=== PATIENT | male | born 1960 | race Caucasian/White ===

== ENCOUNTER 2017-07-04 08:30 | Emergency (ER) | payer MEDICARE, OTHER ==
[~2017-07-04] VITALS: Ht 195.6 cm; Wt 87.5 kg
[~2017-07-04 08:30] MED LIST: ALLERGY MED; Amantadine50 MG/5 ML PT; BISA10S PR; CEPH500 PO; CITA20 PO; CLON1 PO; CYAN100 PO; Carbidopa-Levo1 EAC1 PT; Citrate Of Mag300 ML PO; DEXA2; Desyrel50 MG PO; ESCI10; FAMO20 PO; FLUO10 PO; GAVILAX17 GM PT; HYDACE5; HYDACE5 PO; IBUHYD PO; KETO10 PO; Kristalose20 GM PO; LACTULOSE20 GM/30 M PO; LEVCAR2510 PO; MIRALAX119 GM PO; Milk Of Ma400 MG/5 M PO; NORT75; ONDA4 PO; PANT40 PO; PROP80ER PO; RXCEPH500 PO; STOOL SOFTENER100 MG PO; TAMS.4ER PO; TRAM50 PO; VENL150ER PO
[2017-09-29] MEDS ORDERED: ALBU3IS INH (14:48)
[2017-09-29] MEDS ORDERED: GAVILAX17 GM PT (14:51)
[2017-09-29] MEDS ORDERED: PROBIOTIC1 EAC1 PT (14:59)
[2017-09-29] MEDS ORDERED: SENN187 PT (15:00)
[2017-09-29] MEDS ORDERED: Fruity C250 MG PT (15:02)
[2017-09-29] MEDS ORDERED: Mucinex600 MG PT (17:23)
[2017-09-29] MEDS ORDERED: QUET25 PT ×2 (17:23)
== END 2017-07-04 11:48 | disposition home or self-care (01) ==
LOC: ER 08:30
DX: S01.111A Laceration without foreign body of right eyelid and periocular area, initial encounter (principal); M25.511 Pain in right shoulder; Z88.5 Allergy status to narcotic agent; Z79.899 Other long term (current) drug therapy; W22.8XXA Striking against or struck by other objects, initial encounter; Y92.009 Unspecified place in unspecified non-institutional (private) residence as the place of occurrence of the external cause
CPT/HCPCS: 12014; 70450; 73030; 99284

== ENCOUNTER → 2017-07-17 | Outpatient (CLI) | payer MEDICARE, OTHER ==
[~2017-07-17] MED LIST changes: +ACETAMINOP325 MG/10. PT; +ALBU2.5V5 NEB; +ALBU3IS INH; +B Complex #11 EACH PT; +Cephalexin250 MG/5 M PO; +DOXA1 PT; +FURADANTIN PT; +Fruity C250 MG PT; +LEVOFLOXAC250 MG/10 PT; +LORA.5 PO; +LORA.5 PT; +MEROPENEM-1 GM/50 ML IV; +Mucinex600 MG PT; +NYST100000 PO; +ONDA4ODT MM; +ONDA8 PT; +PROBIOTIC1 EAC1 PT; +PROM25 PO; +Prilosec10 M1 PT; +QUET25 PT; +ROXICODONE5 MG PT; +Ranitidine HCl300 MG PO; +SENN187 PT; +SULFATRIM 800-120 ML PT; +Solaraze100 GM TOP; +Xylocaine 2% In20 ML PO; +ZOSYN 3.373.375 GM/5 IV
[2017-07-17 12:36] LABS: Source, Urine Clean Catch
[2017-07-17 13:08] LABS: Bilirubin, Urine Neg (Neg); Blood, Urine 1+ (Neg); Glucose Qualitative, Urine Neg (Neg); Ketones, Urine 1+ (Neg); Leukocyte Esterase, Urine 2+ (Neg); Nitrite, Urine Neg (Neg); Protein, Urine Neg (Neg); Urobilinogen, Urine 1+ (Normal)
[2017-07-17 13:22] LABS: Appearance, Urine Clear (Clear); Color, Urine Yellow (P-Yellow)
[2017-07-17 13:23] LABS: Bacteria Few /hpf; Squamous Epithelial Cells Not Seen /hpf (Few)
== END | disposition home or self-care (01) ==
LOC: LAB 12:35
PROVIDERS: Internal Medicine Hematology & Oncology
DX: C09.9 Malignant neoplasm of tonsil, unspecified (principal); C77.0 Secondary and unspecified malignant neoplasm of lymph nodes of head, face and neck
CPT/HCPCS: 81001; 87077; 87086; 87186

== ENCOUNTER → 2017-07-24 | Outpatient (CLI) | payer MEDICARE, OTHER ==
[2017-07-24 14:56] LABS: Source, Urine Clean Catch
[2017-07-24 15:23] LABS: Bilirubin, Urine Neg (Neg); Blood, Urine Neg (Neg); Glucose Qualitative, Urine Neg (Neg); Ketones, Urine Neg (Neg); Leukocyte Esterase, Urine 1+ (Neg); Nitrite, Urine Neg (Neg); Protein, Urine 1+ (Neg); Urobilinogen, Urine 2+ (Normal)
[2017-07-24 15:32] LABS: Appearance, Urine Clear (Clear); Color, Urine Yellow (P-Yellow)
[2017-07-24 15:33] LABS: Bacteria Few /hpf; Red Blood Cells, Urine 0-2 /hpf (0-2); Squamous Epithelial Cells Few /hpf (Few)
== END ==
LOC: LAB SHORT 14:54
PROVIDERS: Radiology Therapeutic Radiology
DX: N39.0 Urinary tract infection, site not specified (principal)
CPT/HCPCS: 81001; 87077; 87086; 87186

== ENCOUNTER 2017-07-26 22:58 | Emergency (ER) | payer MEDICARE, OTHER ==
[~2017-07-26] VITALS: Ht 195.6 cm; Wt 85.7 kg
[~2017-07-26 22:58] MED LIST changes: -ACETAMINOP325 MG/10. PT; -ALBU2.5V5 NEB; -ALBU3IS INH; -B Complex #11 EACH PT; -Cephalexin250 MG/5 M PO; -DOXA1 PT; -FURADANTIN PT; -Fruity C250 MG PT; -LEVOFLOXAC250 MG/10 PT; -LORA.5 PO; -LORA.5 PT; -MEROPENEM-1 GM/50 ML IV; -Mucinex600 MG PT; -NYST100000 PO; -ONDA4ODT MM; -ONDA8 PT; -PROBIOTIC1 EAC1 PT; -PROM25 PO; -Prilosec10 M1 PT; -QUET25 PT; -ROXICODONE5 MG PT; -Ranitidine HCl300 MG PO; -SENN187 PT; -SULFATRIM 800-120 ML PT; -Solaraze100 GM TOP; -Xylocaine 2% In20 ML PO; -ZOSYN 3.373.375 GM/5 IV
[2017-07-27] MEDS ORDERED: ONDA8 PT (11:55)
[2017-07-27] MEDS ORDERED: ONDA4ODT MM (11:55)
[2017-07-27] MEDS ORDERED: PANT40 PO (11:58)
[2017-07-27] MEDS ORDERED: Solaraze100 GM TOP (12:00)
[2017-07-27] MEDS ORDERED: NYST100000 PO (12:02)
[2017-07-27] MEDS ORDERED: Xylocaine 2% In20 ML PO (12:05)
[2017-07-27] MEDS ORDERED: Ranitidine HCl300 MG PO (12:05)
[2017-07-27] MEDS ORDERED: PROM25 PO (12:06)
[2017-07-27] MEDS ORDERED: SULFATRIM 800-120 ML PT (12:09)
[2017-07-27] MEDS ORDERED: LORA.5 PO (12:10)
[2017-07-27] MEDS ORDERED: LEVOFLOXAC250 MG/10 PT (12:12)
[2017-07-27] MEDS ORDERED: ALBU2.5V5 NEB (12:14)
[2017-07-27] MEDS ORDERED: ZOSYN 3.373.375 GM/5 IV (12:15)
[2017-09-29] MEDS ORDERED: ALBU3IS INH (14:48)
[2017-09-29] MEDS ORDERED: GAVILAX17 GM PT (14:51)
[2017-09-29] MEDS ORDERED: PROBIOTIC1 EAC1 PT (14:59)
[2017-09-29] MEDS ORDERED: SENN187 PT (15:00)
[2017-09-29] MEDS ORDERED: Fruity C250 MG PT (15:02)
[2017-09-29] MEDS ORDERED: Mucinex600 MG PT (17:23)
[2017-09-29] MEDS ORDERED: QUET25 PT ×2 (17:23)
== END 2017-07-27 00:43 | disposition home or self-care (01) ==
LOC: ER 22:58
DX: N39.0 Urinary tract infection, site not specified (principal); B96.5 Pseudomonas (aeruginosa) (mallei) (pseudomallei) as the cause of diseases classified elsewhere; C14.0 Malignant neoplasm of pharynx, unspecified; Z88.5 Allergy status to narcotic agent; Z79.899 Other long term (current) drug therapy; Z87.891 Personal history of nicotine dependence
CPT/HCPCS: 96365; 99282; J2543; J7030

== ENCOUNTER 2017-07-27 08:14 | Day surgery (SDC) | payer MEDICARE, OTHER ==
[2017-07-27] MEDS ORDERED: ONDA8 PT (11:55)
[2017-07-27] MEDS ORDERED: ONDA4ODT MM (11:55)
[2017-07-27] MEDS ORDERED: PANT40 PO (11:58)
[2017-07-27] MEDS ORDERED: Solaraze100 GM TOP (12:00)
[2017-07-27] MEDS ORDERED: NYST100000 PO (12:02)
[2017-07-27] MEDS ORDERED: Ranitidine HCl300 MG PO (12:05)
[2017-07-27] MEDS ORDERED: Xylocaine 2% In20 ML PO (12:05)
[2017-07-27] MEDS ORDERED: PROM25 PO (12:06)
[2017-07-27] MEDS ORDERED: SULFATRIM 800-120 ML PT (12:09)
[2017-07-27] MEDS ORDERED: LORA.5 PO (12:10)
[2017-07-27] MEDS ORDERED: LEVOFLOXAC250 MG/10 PT (12:12)
[2017-07-27] MEDS ORDERED: ALBU2.5V5 NEB (12:14)
[2017-07-27] MEDS ORDERED: ZOSYN 3.373.375 GM/5 IV (12:15)
[2017-09-29] MEDS ORDERED: ALBU3IS INH (14:48)
[2017-09-29] MEDS ORDERED: GAVILAX17 GM PT (14:51)
[2017-09-29] MEDS ORDERED: PROBIOTIC1 EAC1 PT (14:59)
[2017-09-29] MEDS ORDERED: SENN187 PT (15:00)
[2017-09-29] MEDS ORDERED: Fruity C250 MG PT (15:02)
[2017-09-29] MEDS ORDERED: Mucinex600 MG PT (17:23)
[2017-09-29] MEDS ORDERED: QUET25 PT ×2 (17:23)
== END 2017-07-27 18:39 | disposition home or self-care (01) ==
LOC: ATC 08:14
DX: N39.0 Urinary tract infection, site not specified (principal); Z79.899 Other long term (current) drug therapy; Z88.5 Allergy status to narcotic agent
CPT/HCPCS: 96365; 99282; J2185; J2543; J7030

== ENCOUNTER 2017-07-28 00:29 | Day surgery (SDC) | payer MEDICARE, OTHER ==
[~2017-07-28 00:29] MED LIST changes: +ALBU2.5V5 NEB; +LEVOFLOXAC250 MG/10 PT; +LORA.5 PO; +NYST100000 PO; +ONDA4ODT MM; +ONDA8 PT; +PROM25 PO; +Ranitidine HCl300 MG PO; +SULFATRIM 800-120 ML PT; +Solaraze100 GM TOP; +Xylocaine 2% In20 ML PO; +ZOSYN 3.373.375 GM/5 IV
[2017-07-29] MEDS ORDERED: MEROPENEM-1 GM/50 ML IV (08:20)
[2017-09-29] MEDS ORDERED: ALBU3IS INH (14:48)
[2017-09-29] MEDS ORDERED: GAVILAX17 GM PT (14:51)
[2017-09-29] MEDS ORDERED: PROBIOTIC1 EAC1 PT (14:59)
[2017-09-29] MEDS ORDERED: SENN187 PT (15:00)
[2017-09-29] MEDS ORDERED: Fruity C250 MG PT (15:02)
[2017-09-29] MEDS ORDERED: QUET25 PT ×2 (17:23)
[2017-09-29] MEDS ORDERED: Mucinex600 MG PT (17:23)
== END 2017-07-28 17:10 | disposition home or self-care (01) ==
LOC: ATC 00:29
DX: N39.0 Urinary tract infection, site not specified (principal); Z76.89 Persons encountering health services in other specified circumstances; R41.0 Disorientation, unspecified; G20 Parkinson's disease; Z85.01 Personal history of malignant neoplasm of esophagus; Z79.899 Other long term (current) drug therapy; Z79.2 Long term (current) use of antibiotics; Z79.891 Long term (current) use of opiate analgesic; Z87.891 Personal history of nicotine dependence
CPT/HCPCS: 96365; 96374; 99282; J2185; J2543; J7030

== ENCOUNTER 2017-07-29 00:31 | Day surgery (SDC) | payer MEDICARE, OTHER ==
[2017-07-29] MEDS ORDERED: MEROPENEM-1 GM/50 ML IV (08:20)
[2017-09-29] MEDS ORDERED: ALBU3IS INH (14:48)
[2017-09-29] MEDS ORDERED: GAVILAX17 GM PT (14:51)
[2017-09-29] MEDS ORDERED: PROBIOTIC1 EAC1 PT (14:59)
[2017-09-29] MEDS ORDERED: SENN187 PT (15:00)
[2017-09-29] MEDS ORDERED: Fruity C250 MG PT (15:02)
[2017-09-29] MEDS ORDERED: QUET25 PT ×2 (17:23)
[2017-09-29] MEDS ORDERED: Mucinex600 MG PT (17:23)
== END 2017-07-29 18:05 | disposition home or self-care (01) ==
LOC: ATC 00:31
DX: N39.0 Urinary tract infection, site not specified (principal)
CPT/HCPCS: 96374; J2185

== ENCOUNTER 2017-07-30 00:53 | Day surgery (SDC) | payer MEDICARE, OTHER ==
[~2017-07-30 00:53] MED LIST changes: +MEROPENEM-1 GM/50 ML IV
[2017-09-29] MEDS ORDERED: ALBU3IS INH (14:48)
[2017-09-29] MEDS ORDERED: GAVILAX17 GM PT (14:51)
[2017-09-29] MEDS ORDERED: PROBIOTIC1 EAC1 PT (14:59)
[2017-09-29] MEDS ORDERED: SENN187 PT (15:00)
[2017-09-29] MEDS ORDERED: Fruity C250 MG PT (15:02)
[2017-09-29] MEDS ORDERED: QUET25 PT ×2 (17:23)
[2017-09-29] MEDS ORDERED: Mucinex600 MG PT (17:23)
== END 2017-07-30 17:20 | disposition home or self-care (01) ==
LOC: ATC 00:53
DX: N39.0 Urinary tract infection, site not specified (principal)
CPT/HCPCS: 96374; J2185

== ENCOUNTER 2017-07-31 08:07 | Day surgery (SDC) | payer MEDICARE, OTHER ==
[2017-09-29] MEDS ORDERED: ALBU3IS INH (14:48)
[2017-09-29] MEDS ORDERED: GAVILAX17 GM PT (14:51)
[2017-09-29] MEDS ORDERED: PROBIOTIC1 EAC1 PT (14:59)
[2017-09-29] MEDS ORDERED: SENN187 PT (15:00)
[2017-09-29] MEDS ORDERED: Fruity C250 MG PT (15:02)
[2017-09-29] MEDS ORDERED: Mucinex600 MG PT (17:23)
[2017-09-29] MEDS ORDERED: QUET25 PT ×2 (17:23)
== END 2017-07-31 17:24 | disposition home or self-care (01) ==
LOC: ATC 08:07
DX: N39.0 Urinary tract infection, site not specified (principal)
CPT/HCPCS: 36415; 80053; 85025; 96374; J2185

== ENCOUNTER 2017-08-01 00:24 | Day surgery (SDC) | payer MEDICARE, OTHER ==
[2017-09-29] MEDS ORDERED: ALBU3IS INH (14:48)
[2017-09-29] MEDS ORDERED: GAVILAX17 GM PT (14:51)
[2017-09-29] MEDS ORDERED: PROBIOTIC1 EAC1 PT (14:59)
[2017-09-29] MEDS ORDERED: SENN187 PT (15:00)
[2017-09-29] MEDS ORDERED: Fruity C250 MG PT (15:02)
[2017-09-29] MEDS ORDERED: Mucinex600 MG PT (17:23)
[2017-09-29] MEDS ORDERED: QUET25 PT ×2 (17:23)
== END 2017-08-01 17:30 | disposition home or self-care (01) ==
LOC: ATC 00:24
DX: N39.0 Urinary tract infection, site not specified (principal)
CPT/HCPCS: 96374; J2185

== ENCOUNTER 2017-08-01 17:39 | Emergency (ER) | payer MEDICARE, OTHER ==
[~2017-08-01] VITALS: Ht 195.6 cm; Wt 83.5 kg
[2017-08-01 18:32] LABS: BASOPHILS ABSOLUTE AUTO 0.01 K/mm3 (0.00-0.23); BASOPHILS PERCENT AUTO 0 % (0-2); EOSINOPHILS ABSOLUTE AUTO 0.01 K/mm3 (0.00-0.68); EOSINOPHILS PERCENT AUTO 0 % (0-6); Hematocrit 26.3 % (37.0-53.0); Hemoglobin 8.4 g/dL (13.5-17.5); IMMATURE GRAN ABSOLUTE AUTO 0.02 K/mm3 (0.00-0.10); IMMATURE GRAN PERCENT AUTO 1 % (0-1); LYMPHOCYTES ABSOLUTE AUTO 0.65 K/mm3 (0.84-5.20); LYMPHOCYTES PERCENT AUTO 22 % (21-46); MONOCYTES ABSOLUTE AUTO 0.54 K/mm3 (0.16-1.47); MONOCYTES PERCENT AUTO 19 % (4-13); Mean Corpuscular HGB 32.9 pg (26.0-34.0); Mean Corpuscular HGB Conc 31.9 g/dL (31.5-36.5); Mean Corpuscular Volume 103 fL (80-100); Mean Platelet Volume 9.1 fL (9.1-12.4); NEUTROPHILS ABSOLUTE AUTO 1.68 K/mm3 (1.96-9.15); NEUTROPHILS PERCENT AUTO 58 % (41-73); Platelet Count 248 K/mm3 (150-400); RDW Coefficient Variation 22.6 % (11.7-14.2); RDW Standard Deviation 83.8 fL (35.1-46.3); Red Blood Cell Count 2.55 M/mm3 (4.30-5.90); White Blood Cell Count 2.91 K/mm3 (4.00-11.30)
[2017-08-01 18:49] LABS: Alanine Aminotransfer (ALT/SGP 17 U/L (12-78); Albumin, Blood 3.2 g/dL (3.4-5.0); Albumin/Globulin Ratio 0.8 (0.8-1.8); Alk Phos 96 U/L (50-136); Anion Gap 6 mmol/L (6-16); Aspartate Aminotrans (AST/SGOT 16 U/L (12-37); Bilirubin, Total 0.3 mg/dL (0.1-1.0); Blood Urea Nitrogen 19 mg/dL (8-24); Bun/Creatinine Ratio 27.3 (12.0-20.0); CO2, Blood 31 mmol/L (21-32); Calcium, Blood 9.1 mg/dL (8.5-10.1); Chloride, Blood 100 mmol/L (98-108); Globulin, Blood 4.2 g/dL (2.2-4.0); Glomerular Filtration Rate >60 (60-); Glucose, Blood 95 mg/dL (70-99); Potassium, Blood 4.3 mmol/L (3.5-5.5); Sodium, Blood 137 mmol/L (136-145); Total Protein, Blood 7.4 g/dL (6.4-8.2)
[2017-08-01 20:01] LABS: Source, Urine Clean Catch
[2017-08-01 20:03] LABS: Bilirubin, Urine Neg (Neg); Blood, Urine Neg (Neg); Glucose Qualitative, Urine Neg (Neg); Ketones, Urine Neg (Neg); Leukocyte Esterase, Urine 1+ (Neg); Nitrite, Urine Neg (Neg); Protein, Urine Neg (Neg); Urobilinogen, Urine NORM (Normal)
[2017-08-01 20:10] LABS: Appearance, Urine Clear (Clear); Color, Urine Yellow (P-Yellow)
[2017-08-01 20:11] LABS: Bacteria Few /hpf; Red Blood Cells, Urine 0-2 /hpf (0-2); Squamous Epithelial Cells Few /hpf (Few); Yeast/Fungi Urine Few /hpf
[2017-09-29] MEDS ORDERED: ALBU3IS INH (14:48)
[2017-09-29] MEDS ORDERED: GAVILAX17 GM PT (14:51)
[2017-09-29] MEDS ORDERED: PROBIOTIC1 EAC1 PT (14:59)
[2017-09-29] MEDS ORDERED: SENN187 PT (15:00)
[2017-09-29] MEDS ORDERED: Fruity C250 MG PT (15:02)
[2017-09-29] MEDS ORDERED: QUET25 PT ×2 (17:23)
[2017-09-29] MEDS ORDERED: Mucinex600 MG PT (17:23)
== END 2017-08-01 21:09 | disposition home or self-care (01) ==
LOC: ER 17:39
PROVIDERS: Physician Assistant
DX: E86.0 Dehydration (principal); I95.9 Hypotension, unspecified; R41.0 Disorientation, unspecified; G20 Parkinson's disease; Z85.01 Personal history of malignant neoplasm of esophagus; Z88.1 Allergy status to other antibiotic agents; Z79.899 Other long term (current) drug therapy; Z79.2 Long term (current) use of antibiotics; Z79.891 Long term (current) use of opiate analgesic; Z87.891 Personal history of nicotine dependence
CPT/HCPCS: 36415; 71046; 80053; 81001; 83605; 85025; 87086; 93005; 93010; 96360; 99284; J7030

== ENCOUNTER → 2017-08-05 | Outpatient (CLI) | payer MEDICARE, OTHER ==
[~2017-08-05] MED LIST changes: +ACETAMINOP325 MG/10. PT; +ALBU3IS INH; +B Complex #11 EACH PT; +Cephalexin250 MG/5 M PO; +DOXA1 PT; +FURADANTIN PT; +Fruity C250 MG PT; +LORA.5 PT; +Mucinex600 MG PT; +PROBIOTIC1 EAC1 PT; +Prilosec10 M1 PT; +QUET25 PT; +ROXICODONE5 MG PT; +SENN187 PT
[2017-08-05 11:34] LABS: Source, Urine Clean Catch
[2017-08-05 13:38] LABS: Bilirubin, Urine Neg (Neg); Blood, Urine Neg (Neg); Glucose Qualitative, Urine Neg (Neg); Ketones, Urine Neg (Neg); Leukocyte Esterase, Urine Neg (Neg); Nitrite, Urine Neg (Neg); Protein, Urine Neg (Neg); Specific Gravity, Urine 1.015 (1.003-1.022); Urobilinogen, Urine NORM (Normal)
[2017-08-05 13:52] LABS: Appearance, Urine Clear (Clear); Color, Urine Pale Yellow (P-Yellow)
== END ==
LOC: OLS 11:30
PROVIDERS: Nurse Practitioner Family
DX: N39.0 Urinary tract infection, site not specified (principal)
CPT/HCPCS: 81003

== ENCOUNTER 2017-08-08 15:12 | Emergency (ER) | payer MEDICARE, OTHER ==
[~2017-08-08] VITALS: Ht 195.6 cm; Wt 83.5 kg
[~2017-08-08 15:12] MED LIST changes: -ACETAMINOP325 MG/10. PT; -ALBU3IS INH; -B Complex #11 EACH PT; -Cephalexin250 MG/5 M PO; -DOXA1 PT; -FURADANTIN PT; -Fruity C250 MG PT; -LORA.5 PT; -Mucinex600 MG PT; -PROBIOTIC1 EAC1 PT; -Prilosec10 M1 PT; -QUET25 PT; -ROXICODONE5 MG PT; -SENN187 PT
[2017-08-09] MEDS ORDERED: Desyrel50 MG PO (13:41)
[2017-08-09] MEDS ORDERED: Cephalexin250 MG/5 M PO (14:33)
[2017-09-29] MEDS ORDERED: ALBU3IS INH (14:48)
[2017-09-29] MEDS ORDERED: GAVILAX17 GM PT (14:51)
[2017-09-29] MEDS ORDERED: PROBIOTIC1 EAC1 PT (14:59)
[2017-09-29] MEDS ORDERED: SENN187 PT (15:00)
[2017-09-29] MEDS ORDERED: Fruity C250 MG PT (15:02)
[2017-09-29] MEDS ORDERED: Mucinex600 MG PT (17:23)
[2017-09-29] MEDS ORDERED: QUET25 PT ×2 (17:23)
== END 2017-08-08 17:51 | disposition home or self-care (01) ==
LOC: ER 15:12
DX: R05 Cough (principal); Z93.1 Gastrostomy status; Z88.5 Allergy status to narcotic agent; Z79.899 Other long term (current) drug therapy; Z79.2 Long term (current) use of antibiotics; Z79.891 Long term (current) use of opiate analgesic; G20 Parkinson's disease; Z87.891 Personal history of nicotine dependence; Z85.01 Personal history of malignant neoplasm of esophagus
CPT/HCPCS: 71046; 74018; 93005; 93010; 99283; Q9963

== ENCOUNTER 2017-08-09 11:30 | Emergency (ER) | payer MEDICARE, OTHER ==
[~2017-08-09] VITALS: Ht 195.6 cm; Wt 83.5 kg
[2017-08-09 12:18] LABS: Hematocrit 24.5 % (37.0-53.0); Hemoglobin 7.9 g/dL (13.5-17.5); Mean Corpuscular HGB 32.8 pg (26.0-34.0); Mean Corpuscular HGB Conc 32.2 g/dL (31.5-36.5); Mean Corpuscular Volume 102 fL (80-100); Mean Platelet Volume 9.2 fL (9.1-12.4); Platelet Count 258 K/mm3 (150-400); RDW Coefficient Variation 20.5 % (11.7-14.2); RDW Standard Deviation 76.1 fL (35.1-46.3); Red Blood Cell Count 2.41 M/mm3 (4.30-5.90); White Blood Cell Count 2.83 K/mm3 (4.00-11.30)
[2017-08-09 12:48] LABS: Alanine Aminotransfer (ALT/SGP 21 U/L (12-78); Albumin, Blood 2.7 g/dL (3.4-5.0); Albumin/Globulin Ratio 0.6 (0.8-1.8); Alk Phos 87 U/L (50-136); Anion Gap 11 mmol/L (6-16); Aspartate Aminotrans (AST/SGOT 23 U/L (12-37); Bilirubin, Total 0.3 mg/dL (0.1-1.0); Blood Urea Nitrogen 13 mg/dL (8-24); Bun/Creatinine Ratio 21.5 (12.0-20.0); CO2, Blood 26 mmol/L (21-32); Chloride, Blood 101 mmol/L (98-108); Creatinine, Blood 0.61 mg/dL (0.60-1.20); Globulin, Blood 4.7 g/dL (2.2-4.0); Glomerular Filtration Rate >60 (60-); Glucose, Blood 119 mg/dL (70-99); Potassium, Blood 4.1 mmol/L (3.5-5.5); Sodium, Blood 138 mmol/L (136-145); Total Protein, Blood 7.4 g/dL (6.4-8.2)
[2017-08-09 12:58] LABS: BAND PERCENT MAN 8 % (0-8); BASOPHILS ABSOLUTE MAN 0.02 K/mm3 (0.00-0.23); BASOPHILS PERCENT MAN 1 % (0-2); EOSINOPHILS ABSOLUTE MAN 0.05 K/mm3 (0.00-0.68); EOSINOPHILS PERCENT MAN 2 % (0-6); LYMPHOCYTES ABSOLUTE MAN 0.53 K/mm3 (0.84-5.20); LYMPHOCYTES PERCENT MAN 19 % (21-46); METAMYELOCYTE ABSOLUTE MAN 0.05 K/mm3 (0.00-0.00); METAMYELOCYTE PERCENT MAN 2 % (0-0); MONOCYTES ABSOLUTE MAN 0.39 K/mm3 (0.16-1.47); MONOCYTES PERCENT MAN 14 % (4-13); NEUTROPHILS ABSOLUTE MAN 1.75 K/mm3 (1.96-9.15); SEG NEUTROPHILS PERCENT MAN 54 % (41-73); TOTAL CELLS COUNTED 100
[2017-08-09 13:24] LABS: Source, Urine Clean Catch
[2017-08-09] MEDS ORDERED: Desyrel50 MG PO (13:41)
[2017-08-09 13:45] LABS: Bilirubin, Urine Neg (Neg); Blood, Urine 3+ (Neg); Glucose Qualitative, Urine Neg (Neg); Ketones, Urine Neg (Neg); Leukocyte Esterase, Urine 3+ (Neg); Nitrite, Urine Neg (Neg); Protein, Urine 2+ (Neg); Specific Gravity, Urine 1.015 (1.003-1.022); Urobilinogen, Urine NORM (Normal)
[2017-08-09 13:58] LABS: Appearance, Urine Hazy (Clear); Color, Urine Yellow (P-Yellow)
[2017-08-09 13:59] LABS: Amorphous Light (0-Heavy)
[2017-08-09 14:00] LABS: Bacteria Few /hpf; Squamous Epithelial Cells Not Seen /hpf (Few)
[2017-08-09] MEDS ORDERED: Cephalexin250 MG/5 M PO (14:33)
[2017-09-29] MEDS ORDERED: ALBU3IS INH (14:48)
[2017-09-29] MEDS ORDERED: GAVILAX17 GM PT (14:51)
[2017-09-29] MEDS ORDERED: PROBIOTIC1 EAC1 PT (14:59)
[2017-09-29] MEDS ORDERED: SENN187 PT (15:00)
[2017-09-29] MEDS ORDERED: Fruity C250 MG PT (15:02)
[2017-09-29] MEDS ORDERED: QUET25 PT ×2 (17:23)
[2017-09-29] MEDS ORDERED: Mucinex600 MG PT (17:23)
== END 2017-08-09 14:53 | disposition home or self-care (01) ==
LOC: ER 11:30
PROVIDERS: Emergency Medicine
DX: R41.82 Altered mental status, unspecified (principal); N39.0 Urinary tract infection, site not specified; G20 Parkinson's disease; F02.80 Dementia in other diseases classified elsewhere, unspecified severity, without behavioral disturbance, psychotic disturbance, mood disturbance, and anxiety; C14.0 Malignant neoplasm of pharynx, unspecified; Z88.5 Allergy status to narcotic agent; Z79.899 Other long term (current) drug therapy; Z87.891 Personal history of nicotine dependence
CPT/HCPCS: 36415; 70450; 80053; 81001; 85025; 87077; 87086; 87186; 99284

== ENCOUNTER 2017-08-15 17:04 | Inpatient (IN) | payer MEDICARE, OTHER ==
[~2017-08-15] VITALS: Ht 195.6 cm; Wt 83.8 kg
[~2017-08-15 17:04] MED LIST changes: +Cephalexin250 MG/5 M PO
[2017-08-15 18:33] LABS: BASOPHILS ABSOLUTE AUTO 0.01 K/mm3 (0.00-0.23); BASOPHILS PERCENT AUTO 0 % (0-2); EOSINOPHILS ABSOLUTE AUTO 0.05 K/mm3 (0.00-0.68); EOSINOPHILS PERCENT AUTO 1 % (0-6); Hematocrit 20.9 % (37.0-53.0); Hemoglobin 6.6 g/dL (13.5-17.5); IMMATURE GRAN ABSOLUTE AUTO 0.08 K/mm3 (0.00-0.10); IMMATURE GRAN PERCENT AUTO 1 % (0-1); LYMPHOCYTES ABSOLUTE AUTO 0.96 K/mm3 (0.84-5.20); LYMPHOCYTES PERCENT AUTO 10 % (21-46); MONOCYTES ABSOLUTE AUTO 0.82 K/mm3 (0.16-1.47); MONOCYTES PERCENT AUTO 8 % (4-13); Mean Corpuscular HGB Conc 31.6 g/dL (31.5-36.5); Mean Platelet Volume 9.1 fL (9.1-12.4); NEUTROPHILS PERCENT AUTO 81 % (41-73); Platelet Count 310 K/mm3 (150-400); RDW Coefficient Variation 20.5 % (11.7-14.2); RDW Standard Deviation 76.9 fL (35.1-46.3); White Blood Cell Count 9.92 K/mm3 (4.00-11.30)
[2017-08-15 18:34] LABS: Mean Corpuscular Volume 105 fL (80-100)
[2017-08-15 18:45] LABS: Alanine Aminotransfer (ALT/SGP 40 U/L (12-78); Albumin, Blood 2.8 g/dL (3.4-5.0); Albumin/Globulin Ratio 0.6 (0.8-1.8); Alk Phos 106 U/L (50-136); Anion Gap 10 mmol/L (6-16); Aspartate Aminotrans (AST/SGOT 22 U/L (12-37); Bilirubin, Total 0.8 mg/dL (0.1-1.0); Blood Urea Nitrogen 18 mg/dL (8-24); Bun/Creatinine Ratio 21.5 (12.0-20.0); CO2, Blood 26 mmol/L (21-32); Calcium, Blood 9.1 mg/dL (8.5-10.1); Chloride, Blood 98 mmol/L (98-108); Creatinine, Blood 0.84 mg/dL (0.60-1.20); Glomerular Filtration Rate >60 (60-); Glucose, Blood 96 mg/dL (70-99); International Normalized Ratio 1.05; Potassium, Blood 3.9 mmol/L (3.5-5.5); Prothrombin Time Results 10.9 Sec (9.7-11.5); Sodium, Blood 134 mmol/L (136-145); Total Protein, Blood 7.8 g/dL (6.4-8.2)
[2017-08-16 06:46] LABS: BASOPHILS ABSOLUTE AUTO 0.02 K/mm3 (0.00-0.23); BASOPHILS PERCENT AUTO 0 % (0-2); EOSINOPHILS ABSOLUTE AUTO 0.05 K/mm3 (0.00-0.68); EOSINOPHILS PERCENT AUTO 1 % (0-6); Hematocrit 30.4 % (37.0-53.0); IMMATURE GRAN ABSOLUTE AUTO 0.05 K/mm3 (0.00-0.10); IMMATURE GRAN PERCENT AUTO 1 % (0-1); LYMPHOCYTES ABSOLUTE AUTO 0.89 K/mm3 (0.84-5.20); LYMPHOCYTES PERCENT AUTO 12 % (21-46); MONOCYTES ABSOLUTE AUTO 0.59 K/mm3 (0.16-1.47); MONOCYTES PERCENT AUTO 8 % (4-13); Mean Corpuscular HGB 32.4 pg (26.0-34.0); Mean Corpuscular HGB Conc 32.9 g/dL (31.5-36.5); NEUTROPHILS ABSOLUTE AUTO 5.56 K/mm3 (1.96-9.15); NEUTROPHILS PERCENT AUTO 78 % (41-73); Platelet Count 270 K/mm3 (150-400); RDW Coefficient Variation 21.5 % (11.7-14.2); RDW Standard Deviation 76.5 fL (35.1-46.3); Red Blood Cell Count 3.09 M/mm3 (4.30-5.90); White Blood Cell Count 7.16 K/mm3 (4.00-11.30)
[2017-08-16 07:11] LABS: Mean Corpuscular Volume 98 fL (80-100)
[2017-08-16 09:00] LABS: Source, Urine Catheter
[2017-08-16 09:25] LABS: Bilirubin, Urine Neg (Neg); Blood, Urine 5+ (Neg); Glucose Qualitative, Urine Neg (Neg); Ketones, Urine Neg (Neg); Leukocyte Esterase, Urine 2+ (Neg); Nitrite, Urine Neg (Neg); Protein, Urine 2+ (Neg); Specific Gravity, Urine 1.015 (1.003-1.022); Urobilinogen, Urine NORM (Normal)
[2017-08-16 09:28] LABS: Color, Urine Yellow (P-Yellow)
[2017-08-16 09:30] LABS: Appearance, Urine Cloudy (Clear)
[2017-08-16 09:31] LABS: Amorphous Heavy (0-Heavy); Bacteria Mod /hpf; Mucus Light (0-Heavy); Red Blood Cells, Urine TNTC /hpf (0-2); Squamous Epithelial Cells Few /hpf (Few)
[2017-08-17 12:07] LABS: Magnesium, Blood 2.3 mg/dL (1.6-2.4)
[2017-08-17 12:25] LABS: Blood Urea Nitrogen 13 mg/dL (8-24); Bun/Creatinine Ratio 18.2 (12.0-20.0); CO2, Blood 25 mmol/L (21-32); Calcium, Blood 9.3 mg/dL (8.5-10.1); Chloride, Blood 112 mmol/L (98-108); Creatinine, Blood 0.72 mg/dL (0.60-1.20); Glomerular Filtration Rate >60 (60-); Glucose, Blood 96 mg/dL (70-99); Phosphorus, Blood 3.1 mg/dL (2.5-4.9); Potassium, Blood 4.1 mmol/L (3.5-5.5)
[2017-08-17 12:27] LABS: Anion Gap 9 mmol/L (6-16); Sodium, Blood 146 mmol/L (136-145)
[2017-08-17 17:23] LABS: BASOPHILS ABSOLUTE AUTO 0.03 K/mm3 (0.00-0.23); BASOPHILS PERCENT AUTO 1 % (0-2); EOSINOPHILS ABSOLUTE AUTO 0.04 K/mm3 (0.00-0.68); EOSINOPHILS PERCENT AUTO 1 % (0-6); Hematocrit 32.1 % (37.0-53.0); Hemoglobin 10.2 g/dL (13.5-17.5); IMMATURE GRAN ABSOLUTE AUTO 0.03 K/mm3 (0.00-0.10); IMMATURE GRAN PERCENT AUTO 1 % (0-1); LYMPHOCYTES ABSOLUTE AUTO 0.72 K/mm3 (0.84-5.20); LYMPHOCYTES PERCENT AUTO 14 % (21-46); MONOCYTES ABSOLUTE AUTO 0.47 K/mm3 (0.16-1.47); MONOCYTES PERCENT AUTO 9 % (4-13); Mean Corpuscular HGB 32.3 pg (26.0-34.0); Mean Corpuscular HGB Conc 31.8 g/dL (31.5-36.5); Mean Platelet Volume 9.1 fL (9.1-12.4); NEUTROPHILS ABSOLUTE AUTO 4.01 K/mm3 (1.96-9.15); NEUTROPHILS PERCENT AUTO 76 % (41-73); Platelet Count 293 K/mm3 (150-400); RDW Coefficient Variation 21.2 % (11.7-14.2); RDW Standard Deviation 78.5 fL (35.1-46.3); Red Blood Cell Count 3.16 M/mm3 (4.30-5.90)
[2017-08-17 17:28] LABS: Mean Corpuscular Volume 102 fL (80-100)
[2017-08-18 05:20] LABS: BASOPHILS ABSOLUTE AUTO 0.02 K/mm3 (0.00-0.23); BASOPHILS PERCENT AUTO 0 % (0-2); EOSINOPHILS ABSOLUTE AUTO 0.05 K/mm3 (0.00-0.68); EOSINOPHILS PERCENT AUTO 1 % (0-6); Hematocrit 33.2 % (37.0-53.0); Hemoglobin 10.4 g/dL (13.5-17.5); IMMATURE GRAN ABSOLUTE AUTO 0.04 K/mm3 (0.00-0.10); IMMATURE GRAN PERCENT AUTO 1 % (0-1); LYMPHOCYTES ABSOLUTE AUTO 0.69 K/mm3 (0.84-5.20); LYMPHOCYTES PERCENT AUTO 15 % (21-46); MONOCYTES ABSOLUTE AUTO 0.65 K/mm3 (0.16-1.47); MONOCYTES PERCENT AUTO 14 % (4-13); Mean Corpuscular HGB 32.5 pg (26.0-34.0); Mean Corpuscular HGB Conc 31.3 g/dL (31.5-36.5); Mean Corpuscular Volume 104 fL (80-100); Mean Platelet Volume 9.2 fL (9.1-12.4); NEUTROPHILS ABSOLUTE AUTO 3.19 K/mm3 (1.96-9.15); NEUTROPHILS PERCENT AUTO 69 % (41-73); Platelet Count 315 K/mm3 (150-400); RDW Coefficient Variation 21.3 % (11.7-14.2); RDW Standard Deviation 80.4 fL (35.1-46.3); White Blood Cell Count 4.64 K/mm3 (4.00-11.30)
[2017-08-18 05:45] LABS: Anion Gap 9 mmol/L (6-16); Blood Urea Nitrogen 17 mg/dL (8-24); Bun/Creatinine Ratio 24.7 (12.0-20.0); CO2, Blood 26 mmol/L (21-32); Calcium, Blood 9.7 mg/dL (8.5-10.1); Chloride, Blood 113 mmol/L (98-108); Creatinine, Blood 0.69 mg/dL (0.60-1.20); Glomerular Filtration Rate >60 (60-); Glucose, Blood 111 mg/dL (70-99); Magnesium, Blood 2.4 mg/dL (1.6-2.4); Phosphorus, Blood 2.9 mg/dL (2.5-4.9); Potassium, Blood 4.1 mmol/L (3.5-5.5); Sodium, Blood 148 mmol/L (136-145); Triglycerides 75 mg/dL (30-160)
[2017-08-19 04:20] LABS: Anion Gap 6 mmol/L (6-16); Blood Urea Nitrogen 21 mg/dL (8-24); Bun/Creatinine Ratio 30.3 (12.0-20.0); CO2, Blood 27 mmol/L (21-32); Calcium, Blood 9.1 mg/dL (8.5-10.1); Chloride, Blood 111 mmol/L (98-108); Creatinine, Blood 0.69 mg/dL (0.60-1.20); Glomerular Filtration Rate >60 (60-); Glucose, Blood 112 mg/dL (70-99); Magnesium, Blood 2.1 mg/dL (1.6-2.4); Phosphorus, Blood 3.4 mg/dL (2.5-4.9); Potassium, Blood 3.4 mmol/L (3.5-5.5); Sodium, Blood 144 mmol/L (136-145)
[2017-08-20 06:23] LABS: Anion Gap 9 mmol/L (6-16); Blood Urea Nitrogen 25 mg/dL (8-24); Bun/Creatinine Ratio 35.4 (12.0-20.0); CO2, Blood 25 mmol/L (21-32); Calcium, Blood 9.4 mg/dL (8.5-10.1); Chloride, Blood 111 mmol/L (98-108); Creatinine, Blood 0.71 mg/dL (0.60-1.20); Glomerular Filtration Rate >60 (60-); Glucose, Blood 103 mg/dL (70-99); Magnesium, Blood 2.3 mg/dL (1.6-2.4); Phosphorus, Blood 3.7 mg/dL (2.5-4.9); Potassium, Blood 3.7 mmol/L (3.5-5.5); Sodium, Blood 145 mmol/L (136-145)
[2017-08-20 09:14] LABS: BASOPHILS ABSOLUTE AUTO 0.02 K/mm3 (0.00-0.23); BASOPHILS PERCENT AUTO 0 % (0-2); EOSINOPHILS ABSOLUTE AUTO 0.04 K/mm3 (0.00-0.68); EOSINOPHILS PERCENT AUTO 1 % (0-6); Hematocrit 32.4 % (37.0-53.0); IMMATURE GRAN ABSOLUTE AUTO 0.02 K/mm3 (0.00-0.10); IMMATURE GRAN PERCENT AUTO 0 % (0-1); LYMPHOCYTES ABSOLUTE AUTO 0.62 K/mm3 (0.84-5.20); LYMPHOCYTES PERCENT AUTO 13 % (21-46); MONOCYTES ABSOLUTE AUTO 0.53 K/mm3 (0.16-1.47); MONOCYTES PERCENT AUTO 11 % (4-13); Mean Corpuscular HGB 32.2 pg (26.0-34.0); Mean Corpuscular HGB Conc 30.9 g/dL (31.5-36.5); Mean Corpuscular Volume 104 fL (80-100); Mean Platelet Volume 9.3 fL (9.1-12.4); NEUTROPHILS PERCENT AUTO 74 % (41-73); Platelet Count 301 K/mm3 (150-400); RDW Standard Deviation 77.5 fL (35.1-46.3); Red Blood Cell Count 3.11 M/mm3 (4.30-5.90); White Blood Cell Count 4.73 K/mm3 (4.00-11.30)
[2017-08-22 06:00] LABS: BASOPHILS ABSOLUTE AUTO 0.02 K/mm3 (0.00-0.23); BASOPHILS PERCENT AUTO 1 % (0-2); EOSINOPHILS ABSOLUTE AUTO 0.05 K/mm3 (0.00-0.68); EOSINOPHILS PERCENT AUTO 1 % (0-6); Hemoglobin 10.3 g/dL (13.5-17.5); IMMATURE GRAN ABSOLUTE AUTO 0.02 K/mm3 (0.00-0.10); IMMATURE GRAN PERCENT AUTO 1 % (0-1); LYMPHOCYTES ABSOLUTE AUTO 0.67 K/mm3 (0.84-5.20); LYMPHOCYTES PERCENT AUTO 19 % (21-46); MONOCYTES ABSOLUTE AUTO 0.36 K/mm3 (0.16-1.47); MONOCYTES PERCENT AUTO 10 % (4-13); Mean Corpuscular HGB 32.1 pg (26.0-34.0); Mean Corpuscular HGB Conc 31.2 g/dL (31.5-36.5); Mean Corpuscular Volume 103 fL (80-100); Mean Platelet Volume 9.3 fL (9.1-12.4); NEUTROPHILS ABSOLUTE AUTO 2.41 K/mm3 (1.96-9.15); NEUTROPHILS PERCENT AUTO 68 % (41-73); Platelet Count 254 K/mm3 (150-400); RDW Coefficient Variation 18.6 % (11.7-14.2); RDW Standard Deviation 71.4 fL (35.1-46.3); Red Blood Cell Count 3.21 M/mm3 (4.30-5.90); White Blood Cell Count 3.53 K/mm3 (4.00-11.30)
[2017-08-22 06:29] LABS: Anion Gap 7 mmol/L (6-16); Blood Urea Nitrogen 25 mg/dL (8-24); Bun/Creatinine Ratio 39.9 (12.0-20.0); CO2, Blood 26 mmol/L (21-32); Calcium, Blood 9.1 mg/dL (8.5-10.1); Chloride, Blood 112 mmol/L (98-108); Creatinine, Blood 0.63 mg/dL (0.60-1.20); Glomerular Filtration Rate >60 (60-); Glucose, Blood 87 mg/dL (70-99); Magnesium, Blood 1.9 mg/dL (1.6-2.4); Phosphorus, Blood 3.2 mg/dL (2.5-4.9); Potassium, Blood 3.6 mmol/L (3.5-5.5); Sodium, Blood 145 mmol/L (136-145); Triglycerides 86 mg/dL (30-160)
[2017-09-29] MEDS ORDERED: ALBU3IS INH (14:48)
[2017-09-29] MEDS ORDERED: GAVILAX17 GM PT (14:51)
[2017-09-29] MEDS ORDERED: PROBIOTIC1 EAC1 PT (14:59)
[2017-09-29] MEDS ORDERED: SENN187 PT (15:00)
[2017-09-29] MEDS ORDERED: Fruity C250 MG PT (15:02)
[2017-09-29] MEDS ORDERED: Mucinex600 MG PT (17:23)
[2017-09-29] MEDS ORDERED: QUET25 PT ×2 (17:23)
== END 2017-08-22 19:07 | disposition short-term general hospital (02) | DRG 393 ==
LOC: SURS 17:04
PROVIDERS: Hospitalist; Internal Medicine Cardiovascular Disease; Internal Medicine Gastroenterology; Student in an Organized Health Care Education/Training Program
PROC: 3E0336Z Introduction of Nutritional Substance into Peripheral Vein, Percutaneous Approach (ICD-10-PCS; principal; 2017-08-17)
PROC: 02HV33Z Insertion of Infusion Device into Superior Vena Cava, Percutaneous Approach (ICD-10-PCS; 2017-08-20)
PROC: B548ZZA Ultrasonography of Superior Vena Cava, Guidance (ICD-10-PCS; 2017-08-20)
DX: K94.23 Gastrostomy malfunction (principal); J69.0 Pneumonitis due to inhalation of food and vomit; G20 Parkinson's disease; E44.1 Mild protein-calorie malnutrition; I72.5 Aneurysm of other precerebral arteries; C09.9 Malignant neoplasm of tonsil, unspecified; B96.5 Pseudomonas (aeruginosa) (mallei) (pseudomallei) as the cause of diseases classified elsewhere; B95.2 Enterococcus as the cause of diseases classified elsewhere; N39.0 Urinary tract infection, site not specified; E87.6 Hypokalemia; F32.9 Major depressive disorder, single episode, unspecified; R62.7 Adult failure to thrive; K12.1 Other forms of stomatitis; Z79.899 Other long term (current) drug therapy; Z88.5 Allergy status to narcotic agent; Z86.73 Personal history of transient ischemic attack (TIA), and cerebral infarction without residual deficits; Z87.891 Personal history of nicotine dependence; Z92.3 Personal history of irradiation; Z92.21 Personal history of antineoplastic chemotherapy; Z68.21 Body mass index [BMI] 21.0-21.9, adult
CPT/HCPCS: 36415; 36430; 36569; 74177; 74230; 80048; 80053; 81001; 82607; 82746; 82947; 83735; 84100; 84478; 85025; 85610; 85730; 86850; 86900; 86901; 86923; 87077; 87086; 87186; 92611; 93005; 93010; C1751; C9113; G8996; G8997; G8998; J1170; J1200; J1885; J2060; J2405; J2543; J3010; J3411; J3480; J7030; J7042; P9016; Q9967

== ENCOUNTER 2017-09-17 07:35 | Emergency (ER) | payer MEDICARE, OTHER ==
[~2017-09-17] VITALS: Ht 195.6 cm; Wt 80.7 kg
[2017-09-17] MEDS ORDERED: ACETAMINOP325 MG/10. PT (08:21)
[2017-09-17] MEDS ORDERED: B Complex #11 EACH PT (08:23)
[2017-09-17] MEDS ORDERED: DOXA1 PT (08:24)
[2017-09-17] MEDS ORDERED: ROXICODONE5 MG PT (08:26)
[2017-09-17] MEDS ORDERED: LORA.5 PT (08:27)
[2017-09-17] MEDS ORDERED: Prilosec10 M1 PT (08:29)
[2017-09-17 08:31] LABS: BASOPHILS ABSOLUTE AUTO 0.02 K/mm3 (0.00-0.23); BASOPHILS PERCENT AUTO 0 % (0-2); EOSINOPHILS ABSOLUTE AUTO 0.03 K/mm3 (0.00-0.68); EOSINOPHILS PERCENT AUTO 1 % (0-6); IMMATURE GRAN ABSOLUTE AUTO 0.02 K/mm3 (0.00-0.10); IMMATURE GRAN PERCENT AUTO 0 % (0-1); LYMPHOCYTES ABSOLUTE AUTO 0.78 K/mm3 (0.84-5.20); LYMPHOCYTES PERCENT AUTO 16 % (21-46); MONOCYTES PERCENT AUTO 12 % (4-13); Mean Corpuscular HGB 32.6 pg (26.0-34.0); Mean Platelet Volume 9.9 fL (9.1-12.4); NEUTROPHILS ABSOLUTE AUTO 3.59 K/mm3 (1.96-9.15); NEUTROPHILS PERCENT AUTO 71 % (41-73); Platelet Count 204 K/mm3 (150-400); RDW Coefficient Variation 15.2 % (11.7-14.2); RDW Standard Deviation 59.5 fL (35.1-46.3); Red Blood Cell Count 2.76 M/mm3 (4.30-5.90); White Blood Cell Count 5.04 K/mm3 (4.00-11.30)
[2017-09-17 08:37] LABS: Mean Corpuscular Volume 105 fL (80-100)
[2017-09-17 08:44] LABS: Alanine Aminotransfer (ALT/SGP 44 U/L (12-78); Albumin, Blood 2.9 g/dL (3.4-5.0); Albumin/Globulin Ratio 0.6 (0.8-1.8); Alk Phos 112 U/L (50-136); Anion Gap 8 mmol/L (6-16); Aspartate Aminotrans (AST/SGOT 22 U/L (12-37); Bilirubin, Total 0.4 mg/dL (0.1-1.0); Blood Urea Nitrogen 17 mg/dL (8-24); CO2, Blood 28 mmol/L (21-32); Calcium, Blood 9.4 mg/dL (8.5-10.1); Chloride, Blood 109 mmol/L (98-108); Creatinine, Blood 0.61 mg/dL (0.60-1.20); Glomerular Filtration Rate >60 (60-); Glucose, Blood 79 mg/dL (70-99); Potassium, Blood 3.9 mmol/L (3.5-5.5); Sodium, Blood 145 mmol/L (136-145); Total Protein, Blood 7.9 g/dL (6.4-8.2)
[2017-09-17] MEDS ORDERED: FURADANTIN PT (08:57)
[2017-09-17 10:16] LABS: Source, Urine Catheter
[2017-09-17 10:19] LABS: Bilirubin, Urine Neg (Neg); Blood, Urine Neg (Neg); Glucose Qualitative, Urine Neg (Neg); Ketones, Urine Neg (Neg); Leukocyte Esterase, Urine 3+ (Neg); Nitrite, Urine Pos (Neg); Protein, Urine 1+ (Neg); Specific Gravity, Urine 1.015 (1.003-1.022); Urobilinogen, Urine NORM (Normal)
[2017-09-17 10:34] LABS: Appearance, Urine Cloudy (Clear); Color, Urine Yellow (P-Yellow)
[2017-09-17 10:37] LABS: Bacteria Rare /hpf; Red Blood Cells, Urine Not Seen /hpf (0-2); Squamous Epithelial Cells Not Seen /hpf (Few)
[2017-09-17 10:41] LABS: Amorphous Mod (0-Heavy)
[2017-09-29] MEDS ORDERED: ALBU3IS INH (14:48)
[2017-09-29] MEDS ORDERED: GAVILAX17 GM PT (14:51)
[2017-09-29] MEDS ORDERED: PROBIOTIC1 EAC1 PT (14:59)
[2017-09-29] MEDS ORDERED: SENN187 PT (15:00)
[2017-09-29] MEDS ORDERED: Fruity C250 MG PT (15:02)
[2017-09-29] MEDS ORDERED: QUET25 PT ×2 (17:23)
[2017-09-29] MEDS ORDERED: Mucinex600 MG PT (17:23)
== END 2017-09-17 16:50 | disposition home or self-care (01) ==
LOC: ER 07:35
PROVIDERS: Emergency Medicine
DX: N39.0 Urinary tract infection, site not specified (principal); E86.0 Dehydration; Z87.891 Personal history of nicotine dependence; Z88.5 Allergy status to narcotic agent; Z79.899 Other long term (current) drug therapy
CPT/HCPCS: 36415; 51701; 71046; 80053; 81001; 85025; 87077; 87086; 87186; 96360; 96361; 99283; J7030

== ENCOUNTER 2017-10-01 00:13 | Emergency (ER) | payer MEDICARE, OTHER ==
[~2017-10-01] VITALS: Ht 185.4 cm; Wt 104.3 kg
[~2017-10-01 00:13] MED LIST changes: +ACETAMINOP325 MG/10. PT; +ALBU3IS INH; +B Complex #11 EACH PT; +DOXA1 PT; +FURADANTIN PT; +Fruity C250 MG PT; +LORA.5 PT; +Mucinex600 MG PT; +PROBIOTIC1 EAC1 PT; +Prilosec10 M1 PT; +QUET25 PT; +ROXICODONE5 MG PT; +SENN187 PT
== END 2017-10-01 00:21 ==
LOC: ER 00:13
DX: I46.9 Cardiac arrest, cause unspecified (principal); Z79.899 Other long term (current) drug therapy
CPT/HCPCS: 31500; 36415; 92950; 96374; 96375; 99285